=== PATIENT | female | born 1970 | race Caucasian/White ===

== ENCOUNTER 2018-05-25 14:11 | Outpatient (CLI) | payer OTHER | END 2018-05-25 14:26 | disposition home or self-care (01) | LOC: RAD 14:11 | DX: M15.8 Other polyosteoarthritis (principal) ==

== ENCOUNTER 2018-05-29 11:20 | Emergency (ER) | payer OTHER ==
[~2018-05-29] VITALS: Ht 165.1 cm; Wt 74.8 kg
[2018-05-29] MEDS ORDERED: AMOXICILLIN500 MG PO (11:28)
[2018-05-29] MEDS ORDERED: augmentin PO (12:41)
[2018-05-29] MEDS ORDERED: CLARITIN-D 241 EACH PO (12:41)
[2018-05-29] MEDS ORDERED: NASONEX17 GM TOP (12:41)
[2018-05-29] MEDS ORDERED: INTESTINEX680 M1 PO (12:41)
== END 2018-05-29 13:35 | disposition home or self-care (01) ==
LOC: ER 11:20
DX: J32.8 Other chronic sinusitis (principal)